=== PATIENT | female | born 1970 | race Caucasian/White ===

== ENCOUNTER 2017-10-17 22:17 | Emergency (ER) | payer OTHER ==
[~2017-10-17] VITALS: Ht 162.6 cm; Wt 115.5 kg
[2017-10-17] MEDS ORDERED: QUET300T2 PO (23:21)
[2017-10-17] MEDS ORDERED: ESTR-95 PO (23:21)
[2017-10-17] MEDS ORDERED: METO50 PO (23:21)
[2017-10-17] MEDS ORDERED: GABA-531 PO (23:21)
[2017-10-17] MEDS ORDERED: METF500T7 PO (23:21)
[2017-10-17] MEDS ORDERED: TRIL8 PO (23:21)
[2017-10-17] MEDS ORDERED: LAMO25 PO (23:21)
[2017-10-17] MEDS ORDERED: DICY10 PO (23:21)
[2017-10-17] MEDS ORDERED: CLON2 PO (23:21)
[2017-10-17] MEDS ORDERED: SPIR25 PO (23:21)
[2017-10-17] MEDS ORDERED: QUET100T PO (23:21)
[2017-10-17] MEDS ORDERED: MIRT15 PO (23:21)
[2017-10-17] MEDS ORDERED: LOSA50TA37 PO (23:21)
[2017-10-17] MEDS ORDERED: ATOR20TA86 PO (23:21)
[2017-10-17] MEDS ORDERED: FAMO20 PO (23:21)
[2017-10-17] MEDS ORDERED: INSREG SQ (23:21)
[2017-10-17] MEDS ORDERED: CLOZ25TA4 PO (23:22)
[2017-10-17 23:34] LABS: GLUCOSE,POINT OF CARE 103 MG/DL (70-110)
[2017-10-17 23:50] LABS: EOSINOPHILS % (AUTO) 2.4 % (1.0-6.0); HEMATOCRIT 36.2 % (36-46); HEMOGLOBIN 12.3 g/dL (12.0-16.0); LYMPHOCYTES # (AUTO) 3.5 K/uL (1.0-4.8); LYMPHOCYTES % (AUTO) 40.8 % (22.0-44.0); MEAN CORPUSCULAR HEMOGLOBIN 29.3 pg (26.0-34.0); MEAN CORPUSCULAR VOLUME 86 fL (80-100); MONOCYTES # (AUTO) 0.6 K/uL (0.1-1.0); MONOCYTES % (AUTO) 6.5 % (2.0-9.0); NEUTROPHILS # (AUTO) 4.2 K/uL (1.8-7.7); NEUTROPHILS % (AUTO) 49.3 % (40.0-70.0); PLATELET COUNT (AUTO) 237 K/uL (150-450); RED BLOOD CELL COUNT(AUTO) 4.21 MIL/uL (4.00-5.20); RED CELL DISTRIBUTION WIDTH 13.9 % (11.5-14.5)
[2017-10-18 00:02] LABS: ANION GAP 9 mmol/L (8-16); CALCIUM, TOTAL 8.9 mg/dL (8.8-10.5); CARBON DIOXIDE 25 mmol/L (22-29); CHLORIDE 103 mmol/L (98-107); CREATININE 0.71 mg/dL (0.60-1.30); GLOMERULAR FILTR. RATE CALC > 60 mL/min (>60); GLUCOSE,RANDOM 95 mg/dL (70-110); POTASSIUM 3.6 mmol/L (3.5-5.1); SODIUM SERUM 137 mmol/L (136-145); UREA NITROGEN, BLOOD 15 mg/dL (7-18)
[2017-10-18 00:07] LABS: ALANINE AMINOTRANSFERASE 24 U/L (12-78); ALBUMIN 3.3 g/dL (3.4-5.0); ALKALINE PHOSPHATASE 141 U/L (46-116); ASPARTATE AMINOTRANSFERASE 17 U/L (15-37); BILIRUBIN,TOTAL 0.2 mg/dL (0.1-1.0); TOTAL PROTEIN, SERUM 7.1 g/dL (6.4-8.2)
[2017-10-18 00:57] LABS: AMPHET/METH SCREEN,URINE NEGATIVE (NEGATIVE); BARBITURATE SCREEN, URINE NEGATIVE (NEGATIVE); BENZODIAZEPINES SCREEN,URINE NEGATIVE (NEGATIVE); CANNABINOID SCREEN,URINE NEGATIVE (NEGATIVE); COCAINE SCREEN,URINE NEGATIVE (NEGATIVE); METHADONE SCREEN, URINE NEGATIVE (NEGATIVE); OPIATE SCREEN,URINE NEGATIVE (NEGATIVE)
[2017-10-18 01:01] LABS: PHENCYCLIDINE SCREEN,URINE NEGATIVE (NEGATIVE)
[2017-10-18 01:48] VITALS: BP 136/72
== END 2017-10-18 02:18 | disposition short-term general hospital (02) ==
LOC: EMS 22:18
DX: F20.0 Paranoid schizophrenia (principal); I11.0 Hypertensive heart disease with heart failure; I50.9 Heart failure, unspecified; E78.00 Pure hypercholesterolemia, unspecified; E11.9 Type 2 diabetes mellitus without complications; Z88.1 Allergy status to other antibiotic agents
CPT/HCPCS: 36415; 80053; 80307; 82962; 84703; 85025; 99285; G0480